=== PATIENT | female | born 1990 | race African-American/Black ===

== ENCOUNTER 2017-02-17 18:48 | Emergency (ER) | payer BC, OTHER | END 2017-02-17 20:20 | disposition home or self-care (01) | LOC: ERS 18:48 | DX: O9A.212 Injury, poisoning and certain other consequences of external causes complicating pregnancy, second trimester (principal); S16.1XXA Strain of muscle, fascia and tendon at neck level, initial encounter; Z3A.14 14 weeks gestation of pregnancy; V89.2XXA Person injured in unspecified motor-vehicle accident, traffic, initial encounter | CPT/HCPCS: 99283 ==

== ENCOUNTER 2018-07-14 15:55 | Emergency (ER) | payer OTHER, MEDICAID ==
[2018-07-14] MEDS ORDERED: Lidocaine 1% 20 ML MDV ONE (16:25)
== END 2018-07-14 16:53 | disposition home or self-care (01) ==
LOC: SCSER 15:55
DX: S01.511A Laceration without foreign body of lip, initial encounter (principal); F17.290 Nicotine dependence, other tobacco product, uncomplicated; Y04.8XXA Assault by other bodily force, initial encounter
CPT/HCPCS: 12041; J2001

== ENCOUNTER 2018-07-20 10:38 | Emergency (ER) | payer OTHER, MEDICAID | END 2018-07-20 10:55 | disposition home or self-care (01) | LOC: SCSER/OP 10:38 | DX: S01.511D Laceration without foreign body of lip, subsequent encounter (principal); F17.290 Nicotine dependence, other tobacco product, uncomplicated ==

== ENCOUNTER 2018-10-15 22:36 | Emergency (ER) | payer MEDICAID, OTHER ==
[2018-10-15] MEDS ORDERED: Lidocaine 1% MPF 2 ML VIAL ONE (23:19)
[2018-10-15] MEDS ORDERED: cefTRIAXone\\ROCEPHIN 250 MG VIAL ONE (23:19)
[2018-10-15] MEDS ORDERED: Azithromycin 250 MG TAB ONE (23:19)
== END 2018-10-15 23:44 | disposition home or self-care (01) ==
LOC: SCSER 22:36
DX: A54.02 Gonococcal vulvovaginitis, unspecified (principal); F17.210 Nicotine dependence, cigarettes, uncomplicated
CPT/HCPCS: 96372; J0696; J2001